=== PATIENT | female | born 1970 | race Caucasian/White ===

== ENCOUNTER 2016-08-27 13:19 | Emergency (ER) | payer MEDICAID ==
[~2016-08-27] VITALS: Ht 177.8 cm; Wt 96.5 kg
[~2016-08-27 13:19] MED LIST: DOCU100C8 PO; FERR325T20 PO; IBUP-1222 PO; IRON PO; MAGNESIUM PO; NITR100C56 PO; ONDA8TAB16 SL; OXYC-302 PO; TRAM-28 PO; ZOLP-413 PO
[2016-08-27] MEDS ORDERED: SODIUM CHLORIDE 0.9% 1,000ML IVBOLUS ONE (14:30)
[2016-08-27] MEDS ORDERED: KETOROLAC 30 MG/1 ML IVPush ONE (14:30)
[2016-08-27] MEDS ORDERED: SODIUM CHLORIDE FLUSH 10ML SYR IVF ONE (14:30)
[2016-08-27 14:41] LABS: HEMOGLOBIN 14.8 g/dL (11.7-16.4)
[2016-08-27] MEDS ORDERED: KETOROLAC 30 MG/1 ML ONE (14:45)
[2016-08-27 14:52] LABS: ASPARTATE AMINO TRANSFERASE 24 U/L (15-37); BLOOD UREA NITROGEN 8 mg/dL (7-18)
[2016-08-27] MEDS ORDERED: HYDROmorphone 1 MG/ML, 1ML ONE (16:20)
[2016-08-27] MEDS ORDERED: ONDANSETRON 2MG/ML, 2ML ONE (16:29)
[2016-08-27] MEDS ORDERED: HYDROmorphone 2 MG/ML, 1ML IVPush PRN (16:30)
[2016-08-27] MEDS ORDERED: ONDANSETRON 2MG/ML, 2ML IVPush ONE (16:30)
[2016-08-27 18:17] VITALS: BP 132/76
== END 2016-08-27 18:21 | disposition home or self-care (01) ==
LOC: ED 17:30
DX: N20.1 Calculus of ureter (principal); K59.00 Constipation, unspecified; G89.29 Other chronic pain; Z90.710 Acquired absence of both cervix and uterus; Z86.718 Personal history of other venous thrombosis and embolism
CPT/HCPCS: 36415; 74176; 76830; 80053; 81003; 85025; 96361; 96374; 96375; 99285; J1170; J1885; J2405; J7030

== ENCOUNTER 2018-06-04 09:43 | Emergency (ER) | payer BC ==
[~2018-06-04] VITALS: Ht 177.8 cm; Wt 114.1 kg
[~2018-06-04 09:43] MED LIST changes: +DOCU100C33 PO; -DOCU100C8 PO; +FERR325T18 PO; -FERR325T20 PO; -TRAM-28 PO; +TRAM-47 PO
[2018-06-04] MEDS ORDERED: OXYcodone/APAP 5/325MG TABLET ONE (10:26)
[2018-06-04] MEDS ORDERED: OXYcodone/APAP 5/325MG TABLET PO ONE (10:30)
[2018-06-04 10:34] LABS: MICROSCOPIC AUTO
[2018-06-04 10:46] LABS: CULTURE INDICATED? YES
[2018-06-04 11:00] LABS: BASOPHILS # (AUTO) 0.05 x10^3/uL (0-0.1); BASOPHILS % (AUTO) 1 % (0-1); EOSINOPHILS # (AUTO) 0.21 x10^3/uL (0-0.4); EOSINOPHILS % (AUTO) 3 % (1-7); LYMPHOCYTES # (AUTO) 1.89 x10^3/uL (1-3.4); LYMPHOCYTES % (AUTO) 24 % (22-44); MD NO; MEAN CORPUSCULAR HEMOGLOBIN 31.3 pg (27.0-34.8); MEAN CORPUSCULAR HGB CONC 33.8 g/dL (32.4-35.8); MEAN CORPUSCULAR VOLUME 92.7 fL (80-100); MEAN PLATELET VOLUME 7.4 fL (7.4-10.4); MONOCYTES % (AUTO) 6 % (2-9); NEUTROPHILS # (AUTO) 5.14 x10^3/uL (1.8-6.8); NEUTROPHILS % (AUTO) 66 % (42-75); PLATELET COUNT 394 x10^3/uL (130-400); RED BLOOD COUNT 4.78 x10^6/uL (3.82-5.3); RED CELL DISTRIBUTION WIDTH 12.3 % (9.6-15.2)
[2018-06-04 11:11] LABS: ALANINE AMINOTRANSFERASE 29 U/L (12-78); ALBUMIN 3.7 g/dL (3.4-5.0); ANION GAP 8 mmol/L (5-15); CALCIUM 8.7 mg/dL (8.5-10.1); CHLORIDE 108 mmol/L (98-107)
[2018-06-04 11:14] LABS: ALKALINE PHOSPHATASE 91 U/L (45-117); BILIRUBIN,TOTAL 0.3 mg/dL (0.2-1.0); CREATININE 0.76 mg/dL (0.55-1.02); TOTAL PROTEIN 7.3 g/dL (6.4-8.2)
[2018-06-04 11:38] VITALS: BP 120/81
[2018-06-04 11:53] LABS: CLUE CELLS NONE SEEN (NONE SEEN); WET PREP WBCS NONE SEEN (FEW)
== END 2018-06-04 12:18 | disposition home or self-care (01) ==
LOC: ED 10:29 → MERGE 10:29 → ED 12:18
DX: N30.00 Acute cystitis without hematuria (principal); F41.1 Generalized anxiety disorder; F32.9 Major depressive disorder, single episode, unspecified; Z90.710 Acquired absence of both cervix and uterus; Z88.8 Allergy status to other drugs, medicaments and biological substances
CPT/HCPCS: 36415; 80053; 81001; 83690; 85025; 87086; 87210; 87491; 87591; 87808; 99283

== ENCOUNTER 2020-02-18 08:35 | Emergency (ER) | payer BC ==
[~2020-02-18] VITALS: Ht 177.8 cm; Wt 108.7 kg
[2020-02-18] MEDS ORDERED: ONDANSETRON 2MG/ML, 2ML ONE (09:24)
[2020-02-18 09:25] LABS: BASOPHILS # (AUTO) 0.02 x10^3/uL (0-0.1); BASOPHILS % (AUTO) 0 % (0-1); EOSINOPHILS # (AUTO) 0.13 x10^3/uL (0-0.4); EOSINOPHILS % (AUTO) 2 % (1-7); LYMPHOCYTES # (AUTO) 2.59 x10^3/uL (1-3.4); LYMPHOCYTES % (AUTO) 29 % (22-44); MD NO; MEAN CORPUSCULAR HEMOGLOBIN 31.1 pg (27.0-34.8); MEAN CORPUSCULAR HGB CONC 32.6 g/dL (32.4-35.8); MEAN CORPUSCULAR VOLUME 95.3 fL (80-100); MONOCYTES # (AUTO) 0.63 x10^3/uL (0.2-0.8); MONOCYTES % (AUTO) 7 % (2-9); NEUTROPHILS # (AUTO) 5.63 x10^3/uL (1.8-6.8); NEUTROPHILS % (AUTO) 63 % (42-75); PLATELET COUNT 378 x10^3/uL (130-400); RED BLOOD COUNT 4.83 x10^6/uL (3.82-5.3); RED CELL DISTRIBUTION WIDTH 12.6 % (9.6-15.2)
[2020-02-18] MEDS ORDERED: MECLIZINE CHEWABLE 25 MG TAB ONE ×2 (09:26→10:37)
[2020-02-18] MEDS ORDERED: ONDANSETRON 2MG/ML, 2ML IVPush ONE (09:30)
[2020-02-18] MEDS ORDERED: MECLIZINE CHEWABLE 25 MG TAB PO ONE ×2 (09:30→10:30)
[2020-02-18] MEDS ORDERED: SODIUM CHLORIDE FLUSH 10ML SYR IVF ONE (09:30)
[2020-02-18 09:35] LABS: ALBUMIN 3.6 g/dL (3.4-5.0); ANION GAP 6 mmol/L (5-15); CHLORIDE 107 mmol/L (98-107); CREATININE 0.75 mg/dL (0.55-1.02)
[2020-02-18 09:39] LABS: TROPONIN I < 0.015 ng/mL (0.000-0.045)
[2020-02-18] MEDS ORDERED: DIAZEPAM 5 MG/ML, 2ML IV ONE (10:00)
[2020-02-18] MEDS ORDERED: METOCLOPRAMIDE 5 MG/ML, 2ML IVPush ONE (10:00)
[2020-02-18 10:40] VITALS: BP 114/68
--- NOTE | 2020-02-18 11:15 | NUR ---
PT AMBULATED AROUND ROOM FOR APPROX 5 MIN WITHOUT ANY N/V.
== END 2020-02-18 11:40 | disposition home or self-care (01) ==
LOC: ED 10:20
DX: R42 Dizziness and giddiness (principal); R11.2 Nausea with vomiting, unspecified; R94.31 Abnormal electrocardiogram [ECG] [EKG]
CPT/HCPCS: 36415; 80048; 82040; 83880; 84484; 85025; 93005; 93971; 96374; 96375; 99285; J2405; J2765; J3360